=== PATIENT | female | born 1980 | race Hispanic/Latino ===

== ENCOUNTER 2018-12-17 08:41 | Outpatient (CLI) | payer OTHER ==
--- NOTE | 2018-12-17 09:34 | ULT ---
US Abdominal History: [Abdominal pain] Comparison: None. Findings: Real-time grayscale and color evaluation of the abdomen was performed. Visualized portion o f the pancreas aorta and IVC are unremarkable. Diffuse increased hepatic echotexture which is coarsened. The liver measures 18.1 cm in length. No mass is appreciated. Portal vein is patent with antegrade flow. Common bile duct measures under 6 mm, normal. Right kidney measures 9.8 x 4.1 x 5 cm without mass, hydronephrosis, or abnormal calcifications. Sple en measures 10.8 cm in length. Left kidney measures 10 x 4.1 x 4.1 cm without mass, hydronephrosis, or abnormal calcifications. The gallbladder is not visualized. Impression: Hepatomegaly with diffuse hepatic steatosis. Gallbladder not visualized.
== END 2018-12-17 08:42 | disposition home or self-care (01) ==
LOC: ULT 08:41
PROVIDERS: ATTEND Family Medicine
DX: R10.9 Unspecified abdominal pain (principal); K76.0 Fatty (change of) liver, not elsewhere classified; R16.0 Hepatomegaly, not elsewhere classified
CPT/HCPCS: 76700